=== PATIENT | male | born 1950 | race Caucasian/White ===

== ENCOUNTER 2016-11-13 10:49 | Observation (INO) | payer MEDICARE ==
[~2016-11-13] VITALS: Ht 180.3 cm; Wt 97.1 kg
--- NOTE | ~2016-11-13 | ECH ---
Transthoracic Echocardiography Report (TTE) Demographics Patient Name KENYA CONDE Date of Study 11/13/2016 Patient Number [id number] Visit Number [id number] Date of 1950 Room Number 423 Accession Number [id number] Gender Male Age 66 year(s) Referring Doc Cartwright MD Sales Promotion Director Lindsay Feldman [facility] Physician Physician Lyndon Cannon MD Physician General Internal Medicine Physician Abdiel Supervising Ordering Physician Richard Go MD/ODALIS SINGLETON Nurse Stress Hand Braille Transcriber Conclusions Contractility Score Summary Normal Left Ventricular contractility was noted. Summary Limited exam for left ventricular function. Technically adequate exam. The estimated left ventricular ejection fraction is 60%. Recommendation The patient will be given the results of this study by the physician who ordered the exam. Procedure Type of Study TTE procedure:Echo Limited SF. Procedure Date Date: 11/13/2016 Start: 03:49 PM Technical Quality: Adequate visualization Indications:Chest pain and Coronary artery disease. Appropriate Use Criteria: 9 Height: 71 inches Weight: 214 pounds BSA: 2.17 m Rhythm: Within normal limits HR: 69 bpm BP: 124/72 mmHg M-Mode/2D Measurements LV Diastolic Dimension: 4.18 cm LV Systolic Dimension: 2.87 cm LV Septum Diastolic: 1 cm LV PW Diastolic: 1.02 cm AO Root Dimension: 2.58 cm LA Dimension: 4.48 cm RV Diastolic Dimension: 3.05 cm LA volume: 56.56 ml LA volume index: 26 ml/m LVOT: 2.38 cm RV Base: 3.4 cm RV Mid: 2.3 cm RV Length: 6.3 cm Doppler Measurements RA Area: 14.73 cm Findings Left Ventricle The left ventricle is normal in size . Right Ventricle Normal right ventricle structure and function. Left Atrium Normal left atrial size. Right Atrium Normal right atrial size. Pericardial Effusion No evidence of pericardial effusion. Miscellaneous Visualized portions of the aortic root and ascending aorta appear normal in size. Pleural Effusion No evidence of pleural effusion. Contractility Score LV regional wall motion:(0-Non visualized 1-Normal 2-Hypokinesis 3-Akinesis 4-Dyskinesis 5-Aneurysm) Signature
[~2016-11-13 10:49] MED LIST: ALTACE DPS10 MG PO; ASA325 MG PO; CENTRUM MEN'S1 EACH PO; CRESTOR10 MG PO; IMDUR DPS30 MG PO; NITROSTAT0.4 MG SL; PRILOSEC DPS20 MG PO; TYLENOL DPS325 MG PO; ULTRAM DPS50 MG PO
--- NOTE | 2016-11-14 08:22 | ER ---
ADMIT: 11/13/2016 RM/LOC: 423 [facility] MR#: [id number] [id number] [facility] [address] [place], [place] [address] KENYA CONDE [address] [place] [id number] Emergency Room Report SEX: M AGE: 66 : 1950 DATE: 11/13/2016 HISTORY OF PRESENT ILLNESS: A 66-year-old gentleman with 2-3 hours worth of chest pain, described as dull and radiating to the left shoulder and through to the back. He states he had a similar event 12 years ago when he had a heart attack and he took a nitroglycerin, which relieved the pain completely. He thinks it was associated with activity. PAST MEDICAL HISTORY: Coronary artery disease, status post 4-vessel CABG 4 years ago. He states he told today has not used nitroglycerin in years. PHYSICAL EXAMINATION: GENERAL: Reveals a 66-year-old gentleman in no acute distress. HEENT: Normocephalic and atraumatic. Pupils equal and reactive. LUNGS: Clear to auscultation. CARDIOVASCULAR: Regular rate and rhythm without murmur, rubs, or gallops. EXTREMITIES: Unremarkable. EMERGENCY ROOM COURSE: Cardiac workup was initiated, which showed normal cardiac markers. Chest x-ray, no acute changes and glucose of 114. CBC was within normal limits. The patient was being admitted with chest pain rule out. Woodrow Mireles MD/ tamy JOB #: [id number] CC: Chay Roach MD, Attending Physician Chay Roach MD, Family Physician
--- NOTE | 2016-11-15 09:07 | HP ---
ADMIT: 11/13/2016 RM/LOC: 423 [facility] MR#: [id number] [facility] [address] [place], [place] [address] KENYA CONDE [address] [place] [address] History and Physical SEX: M AGE: 66 : 1950 DATE OF SERVICE: CHIEF COMPLAINT: Chest pain. HISTORY OF PRESENT ILLNESS: A 66-year-old male was at home, sitting in a chair, not doing any physical activity or exertion. He developed aching in his left chest area, went to left shoulder, and within a few minutes, went to the left scapular area. He said it felt exactly the same as when he had his first heart attack in 2004. He did not have any associated nausea, no diaphoresis, no shortness of breath. Did not feel lightheaded or dizzy. No palpitations. He took a nitroglycerin at home that partially relieved. He came to the emergency room, was given 4 aspirin and his pain went away completely. Initial EKG enzymes are negative. He is pain free at this time. He is being admitted to hospital at this time to trend his EKG and enzymes and Cardiology consult. Significant risks factors include history of 4-vessel CABG in 2004, history of chewing tobacco use, hyperlipidemia, and hypertension. FAMILY HISTORY: Positive for father having a heart attack and mother having elevated lipids. PAST SURGICAL HISTORY: Previous surgical history includes left femoral artery aneurysm repair in 2007, quadruple coronary bypass in 2011, prior history of right rotator cuff repair and back surgery x2. OTHER MEDICAL PROBLEMS: Include gastroesophageal reflux, hyperlipidemia, and hypertension. SOCIAL HISTORY: He is , had worked for the [employer] retired, but now he is occupational therapist assistants decontaminator at [employer]. Lives with his . He does not use cigarettes but does use chewing tobacco or alcohol use. FAMILY HISTORY: Mother is alive at age 88, has hyperlipidemia. Father is alive at age 91, has prior history of heart attack. ALLERGIES: NONE. MEDICATIONS: 1. Centrum Silver 1 daily. 2. Aspirin 325 daily. 3. Crestor 20 mg daily. 4. Imdur 30 mg daily. 5. Ramipril 20 mg daily. 6. Omeprazole 20 mg b.i.d. 7. Tramadol 1/2 tablet three times a day as needed for pain. REVIEW OF SYSTEMS: GENERAL: He states he has been doing well. He has been walking on a treadmill, exercising, lifting weights, and has not had any chest ADMIT: 11/13/2016 RM/LOC: 423 [facility] MR#: [id number] [address] [address] [facility] [address] [place] [address] History and Physical SEX: M AGE: 66 : 1950 pain. Initially, he thought this discomfort was from lifting weights until that started hurting in his left scapula, which was exactly what happened when he had his heart attack in 2004 and had the four-vessel bypass. Denies any fevers or chills. HEENT: No visual changes. No headaches. PULMONARY: No cough, no shortness of breath. CARDIAC: History of hypertension and coronary artery disease, chest pain as noted in the HPI. GI: Negative. : Negative. MUSCULOSKELETAL: Negative. PSYCH: Negative. Rest of review of systems negative. PHYSICAL EXAMINATION: GENERAL: A 66-year-old male. Alert and cooperative x3. VITAL SIGNS: Stable. BP is 120/78, respiratory rate 22, temp 98.4. HEENT: Eyes, PERRLA. EOMs intact. TMs not seen. Throat is moist, not inflamed. NECK: Supple. No lymphadenopathy. No bruits are heard. LUNGS: Clear to auscultation. Respirations are not labored. HEART: Regular rate. No lifts, thrills, heaves or murmur. ABDOMEN: Soft. No organomegaly or tenderness. : Deferred. RECTAL: Deferred. EXTREMITIES: No clubbing or cyanosis. Calves are nontender. Homans sign is negative. As mentioned, initial EKG and initial enzymes are negative. DIAGNOSTIC IMPRESSION: 1. Chest pain, angina at rest. 2. Known coronary artery disease. 3. Hypertension. 4. Hyperlipidemia. 5. Chewing tobacco use. PLAN: We will get serial EKG enzymes, echocardiogram, Cardiology consult. Peng Hurtado MD/ tamy JOB #: [id number] CC: Chay Roach, Attending Physician Chay Roach, Family Physician
[2016-11-15] MEDS ORDERED: ISOSORBIDE MONO30 MG PO (15:10)
[2016-11-15] MEDS ORDERED: ALTACE DPS10 MG PO (15:10)
[2016-11-15] MEDS ORDERED: PRILOSEC DPS20 MG PO (15:10)
[2016-11-15] MEDS ORDERED: ULTRAM DPS50 MG PO (15:10)
[2016-11-15] MEDS ORDERED: ASA325 MG PO (15:11)
[2016-11-15] MEDS ORDERED: CRESTOR10 MG PO (15:11)
[2016-11-15] MEDS ORDERED: [UNRECOGNIZED DRUG - OTHER] PO (15:11)
[2016-11-15] MEDS ORDERED: AMOXIL-DPS500 MG PO (15:12)
[2016-11-15] MEDS ORDERED: NITROSTAT0.4 MG SL (15:12)
--- NOTE | 2016-11-16 14:42 | CO ---
ADMIT: 11/13/2016 RM/LOC: 423 [facility] MR#: [id number] [address] [address] KENYA CONDE [address] [place] [phone] Consultation SEX: M AGE: 66 : 1950 DATE OF CONSULTATION: 11/13/2016 ATTENDING PHYSICIAN: Chay Roach CONSULTING PHYSICIAN: Ralph Ramos MD REASON FOR CONSULTATION: Chest pain. HISTORY OF PRESENT ILLNESS: Baldev is a very nice 66-year-old gentleman with known coronary and peripheral vascular disease. 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 His last heart catheterization in 2004 showed patent grafts. He also has a history of elevated CKs on higher doses of statins. The last time I saw him in March, he had an episode of burning chest pain and I did a stress test at that time, which was negative for ischemia. He has been exercising routinely. He was just at [employer] this week lifting some weights. He did some shoulder presses, and they walk routinely. This morning, he woke with some shoulder discomfort. He then began experiencing some left back discomfort that was redundant, sharp, and kind of a nagging sensation. He was concerned because the burning sensation in his back is similar to what he had before his bypass surgery. It was moderate in intensity. Did not necessarily get better with nitroglycerin. He did not have any associated symptoms. His evaluation thus far is negative. He has not had any EKG changes and his cardiac enzymes are negative. ALLERGIES: NO KNOWN MEDICAL ALLERGIES. HOME MEDICATIONS: 1. Aspirin 325 daily. 2. Imdur 30 daily. 3. Lipitor 20 at bedtime. 4. Multivitamin daily. 5. Sublingual nitroglycerin p.r.n. 6. Omeprazole 20 mg daily. 7. Tramadol 50 daily. ILLNESSES: 1. Gastroesophageal reflux disease. 2. Coronary disease. 3. History of urinary retention. 4. Peripheral vascular disease. PAST SURGICAL HISTORY: Bypass surgery in 2004. He has had two back surgeries and a rotator cuff surgery. FAMILY HISTORY: His father has coronary disease, but still alive at age 91 and it was not premature. He has had previous stents. His mother has high cholesterol, she is still alive at 88. There is a significant family history ADMIT: 11/13/2016 RM/LOC: 423 [facility] MR#: [id number] [address] [address] KENYA CONDE [address] [place] [id number] Consultation SEX: M AGE: 66 : 1950 of thyroid disease and he has one brother who had melanoma. No significant family history of diabetes or stroke. SOCIAL HISTORY: He has been for 40 years. 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 They have three children. He still chews tobacco. He has not smoked for years. He does not follow a special diet. No caffeine, alcohol, or illicit drug use. REVIEW OF SYSTEMS: GENERAL: Denies fatigue, fever, chills, sweats, rash, or weight loss. EYES: Denies cataracts or glaucoma. Positive for partial vision loss. He wears glasses. ENT: Denies problems with nose, mouth or throat. Positive for hearing loss and hearing aids. PULMONARY: Denies cough, sputum production, asthma, emphysema or bronchitis. Denies snoring loudly, wakefulness at night, or fatigue upon awakening. GASTROINTESTINAL: Denies difficulty swallowing. No change in bowel habits. Denies dark or bloody stools. No history of ulcers, hiatal hernia, or gallbladder or liver disease. Positive for heartburn and reflux. GENITOURINARY: Denies dysuria, hematuria, nocturia, urinary tract infection, or kidney stones. Denies history of renal insufficiency or failure. MUSCULOSKELETAL: Positive for arthritis and muscle and joint pains. ENDOCRINE: Denies history of thyroid dysfunction or diabetes. HEMATOLOGIC: Denies history of anemia, easy bruising, or cancer. NEUROLOGIC: Denies chronic headaches, dizziness, syncope, stroke, seizures or numbness or tingling. PSYCHIATRIC: Denies history of mental illness or feelings of depression. PHYSICAL EXAMINATION: VITAL SIGNS: His blood pressure is 124/73, his pulse is 70, respirations are 16. He is afebrile. GENERAL: He is alert, oriented, in good humor, laughing, in no acute distress. SKIN: [place], warm and dry. EYES: Sclerae clear. No xanthelasmas. ENT: Oral mucosa is pink and moist. No jugular venous distention or carotid bruits. CHEST: Respirations are even and unlabored. Lungs are clear to auscultation. HEART: Regular rate and rhythm. Normal S1, S2. No murmurs, rubs or gallops. ABDOMEN: Soft and nontender. MUSCULOSKELETAL: Gait is normal. EXTREMITIES: Peripheral pulses palpable. No clubbing, cyanosis or edema. PSYCHIATRIC: Alert and oriented. Mood and affect are appropriate. LABORATORY AND X-RAY DATA: His cardiac enzymes are negative. Potassium is 4.1, creatinine 1.1. Glucose 114. Hemoglobin is 14.3, white count 5.5, platelet count 194,000. Chest x-ray is unremarkable. IMPRESSION: 1. Atypical chest pain. ADMIT: 11/13/2016 RM/LOC: 423 [facility] MR#: [id number] [address] [address] KENYA CONDE [address] [place] [id number] Consultation SEX: M AGE: 66 : 1950 2. Known coronary disease, status post previous bypass in 2004. 3. Peripheral vascular disease with prior iliac stent. 4. Hyperlipidemia. RECOMMENDATIONS: I think his symptoms are quite atypical. They occurred at rest. There is no exertional component. There was different quality to the pain as the day progressed. I really think that he may have a muscle injury from his recent weight lifting. His says he has been under a lot of stress too, driving over 500 miles to [place] every few weeks to manage his parents, who just moved into a nursing facility. He is still quite concerned, however, because he says the burning sensation is similar to what he had before his bypass surgery. We just went through this just over a year ago when he had a similar episode, but his stress test was normal. We will continue the rule out process with serial enzymes and monitor his symptoms. I would like to do a limited echo to reassess his LV function. If he rules out for myocardial infarction and no other significant symptoms, I think he could be discharged tomorrow and follow up with me as an outpatient. If he continues to have some recurrent symptoms, I think we will have to consider coronary and graft angiography as this has been recurrent despite his normal stress test. Ralph Ramos MD/ tamy JOB #: [id number] CC: Chay Roach, Attending Physician Chay Roach, Family Physician
== END 2016-11-14 14:40 | disposition home or self-care (01) ==
LOC: ER 10:49 → 4PCU 13:00
PROVIDERS: ADMIT Family Medicine
DX: R07.89 Other chest pain (principal); I25.10 Atherosclerotic heart disease of native coronary artery without angina pectoris; I10 Essential (primary) hypertension; I73.9 Peripheral vascular disease, unspecified; E78.5 Hyperlipidemia, unspecified; K21.9 Gastro-esophageal reflux disease without esophagitis; F17.220 Nicotine dependence, chewing tobacco, uncomplicated; Z87.440 Personal history of urinary (tract) infections; Z79.82 Long term (current) use of aspirin; Z79.899 Other long term (current) drug therapy; Z95.1 Presence of aortocoronary bypass graft; Z98.890 Other specified postprocedural states